=== PATIENT | male | born 1995 | race Hispanic/Latino ===

== ENCOUNTER 2017-04-19 11:48 | Emergency (ER) | payer SELFPAY ==
[2017-04-19] MEDS ORDERED: Lidocaine 1% PF 5 ML VIAL ONE (14:44)
== END 2017-04-19 15:37 | disposition home or self-care (01) ==
LOC: ERS 11:48
DX: L02.31 Cutaneous abscess of buttock (principal); F90.9 Attention-deficit hyperactivity disorder, unspecified type
CPT/HCPCS: 10060; J2001

== ENCOUNTER 2017-07-31 20:42 | Emergency (ER) | payer SELFPAY | END 2017-07-31 21:13 | disposition home or self-care (01) | LOC: ERS 20:42 | DX: F10.129 Alcohol abuse with intoxication, unspecified (principal); F90.9 Attention-deficit hyperactivity disorder, unspecified type | CPT/HCPCS: 99282 ==

== ENCOUNTER 2017-09-04 14:54 | Emergency (ER) | payer SELFPAY | END 2017-09-04 15:15 | disposition home or self-care (01) | LOC: ERS 14:54 | DX: H60.91 Unspecified otitis externa, right ear (principal); F90.9 Attention-deficit hyperactivity disorder, unspecified type | CPT/HCPCS: 99282 ==

== ENCOUNTER 2017-11-17 11:03 | Emergency (ER) | payer SELFPAY ==
[2017-11-17] MEDS ORDERED: Ketorolac Tromethamine 30 MG/ML VIAL ONE (11:40)
== END 2017-11-17 12:04 | disposition home or self-care (01) ==
LOC: ERS 11:03
DX: H66.93 Otitis media, unspecified, bilateral (principal); F90.9 Attention-deficit hyperactivity disorder, unspecified type
CPT/HCPCS: 96372; J1885

== ENCOUNTER 2019-04-02 12:13 | Emergency (ER) | payer SELFPAY ==
[2019-04-02 13:27] LABS: Bilirubin Negative (Negative); Blood, Urine Negative (Negative); Clarity Turbid (Clear); Glucose, Urine (Dipstick) Normal (Negative); Leukocyte 500 Leu/uL (Negative); Nitrite Negative (Negative); Protein, Urine (Dipstick) Negative (Neg-Trace); RBC/HPF 0-3 HPF (0-3); Squamous Epithelial 0-3 HPF (0-3); Urobilinogen Normal mg/dL (Less than 2); WBC/HPF Greater than 50 HPF (0-3)
[2019-04-02 13:35] LABS: Bacteria/HPF 2+ HPF (None Seen); Yeast-Budding None Seen HPF (None Seen)
[2019-04-02] MEDS ORDERED: Azithromycin 250 MG TAB ONE (14:26)
[2019-04-02] MEDS ORDERED: cefTRIAXone\\ROCEPHIN 250 MG VIAL ONE (14:26)
[2019-04-02] MEDS ORDERED: Lidocaine 1% (PF) 30 ML VIAL ONE (14:27)
[2019-04-03 18:41] LABS: Chlam.trachomatis by PCR,Urine DETECTED (NotDetected)
== END 2019-04-02 14:55 | disposition home or self-care (01) ==
LOC: ERS 12:13
DX: N39.0 Urinary tract infection, site not specified (principal)
CPT/HCPCS: 81003; 81015; 87491; 87591; 96372; 99283; J0696; J2001

== ENCOUNTER 2019-08-13 03:04 | Emergency (ER) | payer SELFPAY | END 2019-08-13 03:13 | LOC: ERS 03:04 → MERGE 03:04 → ERS 03:13 | DX: F10.129 Alcohol abuse with intoxication, unspecified (principal) | CPT/HCPCS: 99282 ==

== ENCOUNTER 2020-05-11 15:45 | Emergency (ER) | payer SELFPAY | END 2020-05-11 17:20 | disposition home or self-care (01) | LOC: ERS 15:45 | DX: K64.4 Residual hemorrhoidal skin tags (principal) | CPT/HCPCS: 99283 ==

== ENCOUNTER 2023-04-18 11:06 | Emergency (ER) | payer SELFPAY ==
[2023-04-18] MEDS ORDERED: Dexamethasone 10 MG/ML VIAL ONE (11:33)
[2023-04-18] MEDS ORDERED: Ibuprofen 800 MG TAB ONE (11:33)
[2023-04-18] MEDS ORDERED: Lidocaine 2% Viscous Solution 10 ML, Aluminum & Magnesium Hydroxide 30 ML SSW SCH (11:45)
== END 2023-04-18 12:50 | disposition short-term general hospital (02) ==
LOC: ERS 11:06
DX: H66.013 Acute suppurative otitis media with spontaneous rupture of ear drum, bilateral (principal); K21.9 Gastro-esophageal reflux disease without esophagitis; F17.210 Nicotine dependence, cigarettes, uncomplicated
CPT/HCPCS: 99283; J1100